=== PATIENT | female | born 1945 | race Caucasian/White ===

== ENCOUNTER 2025-05-08 08:25 | Emergency (ER) | payer OTHER ==
[~2025-05-08] VITALS: Ht 157.4 cm; Wt 62.6 kg
[2025-05-08 08:44] LABS: MEAN CELL VOLUME 91.2 fl (81.0-99.0); MEAN CORPUSCULAR HGB 30.3 pg (27.0-31.0); MEAN PLATELET VOLUME 8.9 fl (9.6-12.3); NUCLEATED RED BLOOD CELL 0.0 % (0.0-0.0); NUCLEATED RED BLOOD CELL 0.0 10*3/uL (0.0-0.0); PLATELET COUNT AUTOMATED 201 10*3/uL (130-400); RED CELL DISTRI WIDTH 12.6 % (0-14.5)
[2025-05-08 08:46] LABS: MANUAL DIFF REFLEX YES
[2025-05-08 08:55] LABS: ACT PARTIAL THROMBO TIME 25.9 SECONDS (20.0-32.1)
[2025-05-08 09:06] LABS: BUN 20 mg/dl (9-23); SGPT/ALT 13 U/L (5-49)
[2025-05-08 09:09] LABS: PLATELET SUFFICIENCY NORMAL (NORMAL)
[2025-05-08] MEDS ORDERED: HYDROCHLOROTHIA25 M1 PO (09:31)
[2025-05-08] MEDS ORDERED: POTASSIUM CHLORIDE 20 MEQ TAB PO ONE (12:25)
== END 2025-05-08 15:21 | disposition home or self-care (01) ==
LOC: ED 08:25
PROVIDERS: Emergency Medicine
DX: R42 Dizziness and giddiness (principal); I10 Essential (primary) hypertension